=== PATIENT | female | born 1960 | race Caucasian/White ===

== ENCOUNTER 2018-02-17 07:07 | Day surgery (SDC) | payer OTHER ==
[2018-02-16 14:22] VITALS: BMI 36.5
[2018-02-17 07:42] VITALS: TEMP 98
[2018-02-17 11:26] VITALS: BP 111/58; PULSE 64
--- NOTE | 2018-02-18 20:07 | PATH ---
Surgical Pathology Report Patient Name: AKIL PAL [facility]. Rec. #: [id number] /Age/Gender: 1960 (Age: 57) / F Account: [id number] Location: U-ENDOSCOPY Taken: 02/17/2018 Received: 02/17/2018 Reported: 02/18/2018 Physicians: Gal Hernandez M.D. Specimen(s) Received A: RECTAL POLYP B: DISTAL RECTAL POLYP Clinical History Left lower quadrant abdominal pain Postoperative diagnosis: Colon polyps, redundant sigmoid Final Diagnosis A. RECTUM, POLYP, POLYPECTOMY: TUBULAR ADENOMA. B. DISTAL RECTUM, POLYP, BIOPSY: COLONIC MUCOSA WITH SUPERFICIAL HYPERPLASTIC FEATURES. Electronically Signed Karin Ruffin M.D. Gross Description A. Received in formalin, labeled "polyp rectum" is a [place], irregular portion of soft tissue measuring 0.4 cm. in greatest dimension. The specimen is submitted in toto in one cassette. B. Received in formalin, labeled "polyp distal rectum" is a [place], irregular portion of soft tissue measuring 0.3 cm. in greatest dimension. The specimen is submitted in toto in one cassette. DL/02/17/2018 saudi02/17/2018
== END 2018-02-17 11:25 | disposition home or self-care (01) ==
LOC: JASU-ENDO 07:07
PROVIDERS: ATTEND Internal Medicine Gastroenterology
PROC: 0DBP8ZX Excision of Rectum, Via Natural or Artificial Opening Endoscopic, Diagnostic (ICD-10-PCS; principal; 2018-02-17 08:30)
DX: K62.1 Rectal polyp (principal); R10.32 Left lower quadrant pain; K63.89 Other specified diseases of intestine
CPT/HCPCS: 88305-TC

== ENCOUNTER 2019-03-12 16:06 | Emergency (ER) | payer OTHER ==
[2019-03-12 16:18] VITALS: BP 143/80; PULSE 76; TEMP 97.6; BMI 40.7
[2019-03-12] MEDS ORDERED: KETOROLAC TROMETHAMINE 60 MG/2 ML VIAL IM ONE (17:04)
--- NOTE | 2019-03-12 17:09 | PDOC ---
History of Present Illness - General Chief Complaint: Pain Stated Complaint: LT KNEE PAIN Time Seen by Provider: 03/12/19 16:41 History Source: Patient Exam Limitations: No Limitations - History of Present Illness Associated Symptoms: denies: fever/chills Past History - Travel Traveled outside of the country in the last 30 days: No Close contact w/someone who was outside of country & ill: No - Past Medical History Allergies/Adverse Reactions: Allergies Allergy/AdvReac Type Severity Reaction Status Date / Time Penicillins Allergy Rash Verified 03/12/19 16:18 Home Medications: Ambulatory Orders NK [No Known Home Medication] 03/12/19 Asthma: Yes Cancer: No Cardiac Disorders: No 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) COPD: Yes CHF: No Diabetes: Yes (borderline) GI Disorders: Yes (gerd) Disorders: Yes (on meds - incontinence) HTN: Yes Hypercholesterolemia: No Liver Disease: No Seizures: Yes (EPILEPSY on meds, last one 2016) Thyroid Disease: No - Surgical History Cardiac Surgery: Yes (angiograms -both times clear) Orthopedic Surgery: Yes (left foot heel spur) - Immunization History Immunization Up to Date: No - Psycho Social/Smoking Cessation Hx Smoking Status: Yes Smoking History: Never smoked Have you smoked in the past 12 months: Yes Number of Cigarettes Smoked Daily: 10 'Breaking Loose' booklet given: 10/27/11 Hx Alcohol Use: Yes (social) Drug/Substance Use Hx: No Substance Use Type: None Hx Substance Use Treatment: No Review of Systems - Review of Systems Constitutional: No: Chills, Fever Musculoskeletal: Yes: Joint Pain (left knee). 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 Patient denies any direct fall to the knee, fever, chills. She is complaining of pain upon ambulation. On exam there is some tenderness in the anterior aspect of the knee with some extension. Otherwise she does have full range of motion with mild crepitus. X-ray pain control patient with was advised to follow-up with her own orthopedic. Discharge - Discharge Information Problems reviewed: Yes Clinical Impression/Diagnosis: Knee pain, left Qualifiers: Chronicity: chronic Qualified Code(s): M25.562 - Pain in left knee; G89.29 - Other chronic pain Condition: Stable Disposition: HOME - Admission No - Additional Discharge Information Prescription Drug Monitoring Program (I-STOP) results: I-STOP not reviewed - Follow up/Referral Referrals: Adrian Venegas MD [Primary Care Provider] - - Patient Discharge Instructions Patient Printed Discharge Instructions: DI for Knee Pain Additional Instructions: Your x-ray shows no acute fracture or dislocation. There are some arthritic changes that was previously noted on your previous x-ray. Please follow-up with your orthopedic. Take your Naprosyn as previously recommended. Return to the emergency room if worsening symptoms occur - Post Discharge Activity Work/Back to School Note: Back to Work
[2019-03-12] MEDS ORDERED: KETOROLAC TROMETHAMINE 30 MG/1 ML VIAL ONE (17:20)
== END 2019-03-12 18:04 | disposition home or self-care (01) ==
LOC: JERFT 16:06
PROC: 3E0233Z Introduction of Anti-inflammatory into Muscle, Percutaneous Approach (ICD-10-PCS; principal; 2019-03-12)
DX: M25.562 Pain in left knee (principal); G89.29 Other chronic pain; X50.1XXA Overexertion from prolonged static or awkward postures, initial encounter; Y93.89 Activity, other specified; Y92.89 Other specified places as the place of occurrence of the external cause; Y99.8 Other external cause status; M12.9 Arthropathy, unspecified; I10 Essential (primary) hypertension; E11.9 Type 2 diabetes mellitus without complications; J44.9 Chronic obstructive pulmonary disease, unspecified; J45.998 Other asthma; I69.854 Hemiplegia and hemiparesis following other cerebrovascular disease affecting left non-dominant side; Z72.0 Tobacco use; Z86.69 Personal history of other diseases of the nervous system and sense organs; Z87.448 Personal history of other diseases of urinary system
CPT/HCPCS: 73562-TC-LT-FY; 96372; 99282-25

== ENCOUNTER 2021-12-15 19:53 | Emergency (ER) | payer OTHER ==
[2021-12-15 20:02] VITALS: BP 125/67; PULSE 73; RESP 18; TEMP 98; BMI 19.8
[2021-12-15] MEDS ORDERED: LACTATED RINGERS SOLUTION 1000 ML INFUS.BAG IV ONE (20:52)
[2021-12-15] MEDS ORDERED: ONDANSETRON 4 MG/2 ML VIAL IVPUSH ONE (20:52)
[2021-12-15] MEDS ORDERED: ACETAMINOPHEN 1000 MG/100 ML BAG IVPB ONE (20:52)
[2021-12-15] MEDS ORDERED: DIPHTH,PERTUSS(ACELL),TET 0.5 ML DISP.SYRIN IM ONE ×2 (20:53→21:21)
[2021-12-15] MEDS ORDERED: ACETAMINOPHEN INJECTION 100 ML IVPB ONE (21:21)
[2021-12-15] MEDS ORDERED: ONDANSETRON 4 MG/2 ML VIAL ONE (21:21)
[2021-12-15 22:25] LABS: BASO % 0.7 % (0-2.0); EOS % 1.9 % (0-4.5); HEMATOCRIT 36.2 % (32.4-45.2); HEMOGLOBIN 11.5 GM/dL (10.7-15.3); LYMPH % 46.2 % (8-40); MCH 28.1 pg (25.7-33.7); MCHC 31.7 g/dl (32.0-36.0); MEAN CELL VOLUME 88.7 fl (80-96); MEAN PLT VOLUME 11.2 fl (7.5-11.1); MONO % 8.8 % (3.8-10.2); NEUT % 42.4 % (42.8-82.8); PLATELET COUNT 190 10^3/uL (134-434); RBC 4.08 M/mm3 (3.60-5.2); RDW 12.8 % (11.6-15.6); WHITE BLOOD COUNT 5.3 K/mm3 (4.0-10.0)
[2021-12-15 22:36] LABS: CALCIUM 8.8 mg/dL (8.5-10.1)
[2021-12-15 22:37] LABS: BLOOD UREA NITROGEN 20.8 mg/dL (7-18)
[2021-12-15 22:38] LABS: MAGNESIUM 2.3 mg/dL (1.8-2.4)
[2021-12-15 22:39] LABS: ALBUMIN 3.4 g/dl (3.4-5.0)
[2021-12-15 22:40] LABS: CREATININE 0.6 mg/dL (0.55-1.3); PHOSPHOROUS 3.8 mg/dL (2.5-4.9)
[2021-12-15 22:42] LABS: BILIRUBIN,TOTAL 0.3 mg/dL (0.2-1)
[2021-12-15 22:44] LABS: TOT PROT 6.3 g/dl (6.4-8.2)
== END 2021-12-15 23:52 | disposition home or self-care (01) ==
LOC: JER 19:53
PROC: 3E0333Z Introduction of Anti-inflammatory into Peripheral Vein, Percutaneous Approach (ICD-10-PCS; principal; 2021-12-15)
PROC: 3E033GC Introduction of Other Therapeutic Substance into Peripheral Vein, Percutaneous Approach (ICD-10-PCS; 2021-12-15)
PROC: 3E0234Z Introduction of Serum, Toxoid and Vaccine into Muscle, Percutaneous Approach (ICD-10-PCS; 2021-12-15)
DX: S01.112A Laceration without foreign body of left eyelid and periocular area, initial encounter (principal); S09.90XA Unspecified injury of head, initial encounter; W01.0XXA Fall on same level from slipping, tripping and stumbling without subsequent striking against object, initial encounter
CPT/HCPCS: 36415; 70450-TC; 72125-TC; 80053; 83735; 84100; 85025; 90471; 90715; 93005; 93010; 96374; 96375; 99285-25

== ENCOUNTER 2023-01-06 17:35 | Emergency (ER) | payer OTHER ==
[2023-01-06 17:58] VITALS: BP 114/67; PULSE 85; RESP 18; TEMP 98.2; BMI 20.7
[2023-01-06] MEDS ORDERED: LIDOCAINE 4% PATCH TP ONE ×2 (20:01→20:02)
== END 2023-01-06 20:05 | disposition home or self-care (01) ==
LOC: JER 17:35 → JERFT 17:35
DX: M25.562 Pain in left knee (principal)
CPT/HCPCS: 73562-TC-LT-FY; 99283-25

== ENCOUNTER 2023-03-27 16:20 | Emergency (ER) | payer OTHER ==
[2023-03-27 16:28] VITALS: RESP 18; BMI 29.2
[2023-03-27 18:10] LABS: BASO % 0.6 % (0-2.0); EOS % 2.6 % (0-4.5); HEMATOCRIT 32.7 % (32.4-45.2); LYMPH % 33.2 % (8-40); MCH 28.2 pg (25.7-33.7); MCHC 33.6 g/dl (32.0-36.0); MEAN PLT VOLUME 7.6 fl (7.5-11.1); NEUT % 57.6 % (42.8-82.8); PLATELET COUNT 355 10^3/uL (134-434); RBC 3.89 M/mm3 (3.60-5.2); RDW 13.2 % (11.6-15.6); WHITE BLOOD COUNT 7.5 K/mm3 (4.0-10.0)
[2023-03-27 18:32] LABS: INR 1.06 (0.83-1.09); PROTHROMBIN TIME (PATIENT) 12.3 SEC (9.7-13.0)
[2023-03-27 18:35] LABS: ACTIVATED PTT 28.6 SECONDS (25.2-36.5)
[2023-03-27 18:53] LABS: POTASSIUM 3.7 mmol/L (3.5-5.1)
[2023-03-27 18:55] LABS: CALCIUM 8.4 mg/dL (8.5-10.1)
[2023-03-27 18:56] LABS: ALBUMIN 2.8 g/dl (3.4-5.0); BLOOD UREA NITROGEN 13.9 mg/dL (7-18)
[2023-03-27 18:59] LABS: CREATININE 0.7 mg/dL (0.55-1.3)
[2023-03-27 19:01] LABS: BILIRUBIN,TOTAL 0.3 mg/dL (0.2-1)
[2023-03-27 20:23] VITALS: BP 106/55; PULSE 76; TEMP 98.7
== END 2023-03-27 21:14 | disposition short-term general hospital (02) ==
LOC: JER 16:20
DX: T85.838A Hemorrhage due to other internal prosthetic devices, implants and grafts, initial encounter (principal); T85.848A Pain due to other internal prosthetic devices, implants and grafts, initial encounter
CPT/HCPCS: 36415; 80053; 85025; 85610; 85730; 86850; 86900; 86901; 99285-25